=== PATIENT | female | born 1960 | race Caucasian/White ===

== ENCOUNTER → 2022-10-11 | Outpatient (CLI) | payer BC | END | disposition home or self-care (01) | LOC: RESCLI 11:42 | PROVIDERS: ATTEND Internal Medicine | DX: L40.50 Arthropathic psoriasis, unspecified (principal); Z82.49 Family history of ischemic heart disease and other diseases of the circulatory system; Z98.890 Other specified postprocedural states; Z79.899 Other long term (current) drug therapy; Z88.5 Allergy status to narcotic agent; Z88.8 Allergy status to other drugs, medicaments and biological substances ==

== ENCOUNTER → 2023-07-06 | Outpatient (CLI) | payer SELFPAY | END | disposition home or self-care (01) | LOC: US 08:30 | PROVIDERS: ATTEND Specialist | DX: K76.0 Fatty (change of) liver, not elsewhere classified (principal); R79.89 Other specified abnormal findings of blood chemistry ==

== ENCOUNTER → 2024-08-22 | Outpatient (CLI) | payer BC | END | disposition home or self-care (01) | LOC: RESCLI 12:54 | PROVIDERS: ATTEND Internal Medicine | DX: L40.50 Arthropathic psoriasis, unspecified (principal); F32.9 Major depressive disorder, single episode, unspecified; Z79.899 Other long term (current) drug therapy; Z88.8 Allergy status to other drugs, medicaments and biological substances ==